=== PATIENT | female | born 1985 | race Caucasian/White ===

== ENCOUNTER 2019-05-06 11:04 | Inpatient (IN) ==
[2019-05-06 11:37] LABS: URINE SOURCE VOIDED
[2019-05-06 11:43] LABS: BILIRUBIN URINE NEGATIVE (NEGATIVE); BLOOD URINE 4+ (NEGATIVE); CLARITY SLIGHTLY CLOUDY (CLEAR); COLOR YELLOW; GLUCOSE URINE NEGATIVE (NEGATIVE); KETONE URINE TRACE mg/dL (NEGATIVE); PROTEIN URINE NEGATIVE (NEGATIVE); SP GRAVITY URINE 1.015
[2019-05-06 11:44] LABS: LEUKOCYTES URINE 1+ (NEGATIVE); NITRITE URINE NEGATIVE (NEGATIVE); UROBILINOGEN URINE 1 mg/dL
[2019-05-06 11:52] LABS: UR AMPHETAMINES QUAL NONE DETECTED (NONE DETECT); UR BARBITUATES QUAL NONE DETECTED (NONE DETECT); UR BENZODIAZEPIN QUAL NONE DETECTED (NONE DETECT); UR CANNABINOIDS QUAL NONE DETECTED (NONE DETECT); UR COCAINE QUAL NONE DETECTED (NONE DETECT); UR METHADONE QUAL NONE DETECTED (NONE DETECT); UR METHAMPHETAMINE QUAL NONE DETECTED (NONE DETECT); UR OPIATES QUAL NONE DETECTED (NONE DETECT); UR OXYCODONE QUAL NONE DETECTED (NONE DETECT); UR PCP QUAL NONE DETECTED (NONE DETECT); UR PROPOXYPHENE QUAL NONE DETECTED (NONE DETECT); UR TCA QUAL NONE DETECTED (NONE DETECT)
[2019-05-06] MEDS ORDERED: PEPCID PO ONE (13:56)
[2019-05-06] MEDS ORDERED: KEFZOL 1 GM/D5W 1 GM/50 ML IVPB IV PRN (13:56)
[2019-05-06] MEDS ORDERED: TYLENOL PO PRN (13:56)
[2019-05-06] MEDS ORDERED: LR 500 ML IV ONE (13:56)
[2019-05-06] MEDS ORDERED: PEPCID PO PRN (13:56)
[2019-05-06] MEDS ORDERED: PEPCID IV PRN (13:56)
[2019-05-06] MEDS ORDERED: ZOFRAN IV PRN (13:56)
[2019-05-06] MEDS ORDERED: REGLAN PO ONE (13:56)
[2019-05-06] MEDS ORDERED: PITOCIN 30 UNITS/NS 30 UNIT/500 ML IV.SOLN IV SCH (14:00)
[2019-05-06] MEDS ORDERED: SODIUM CHLORIDE 0.9% INJ SCH (14:00)
[2019-05-06 14:46] LABS: BASO# 0.02 X1000 (0.0-0.2); BASO% 0.2 % (0.0-0.8); EOS# 0.11 X1000 (0.0-0.7); HEMATOCRIT 34.9 % (37.0-47.0); HEMOGLOBIN 11.7 g/dL (12.0-16.0); IMM GRAN# 0.13 X1000 (0.0-0.04); IMM GRAN% 1.1 % (0.0-0.5); LYMPH# 1.97 X1000 (1.2-3.4); LYMPH% 17.2 % (20.5-51.1); MCHC 33.5 g/dL (33-37); MCV 92.6 FL (81-99); MONO# 0.86 X1000 (0.11-0.59); MONO% 7.5 % (1.7-9.3); MPV 10.6 FL (7.4-10.4); NEUT# 8.35 X1000 (1.4-6.5); PLT 234 X1000 (130-400); RBC 3.77 XMIL (4.2-5.4); RDW 14.1 % (11.5-14.5); WBC 11.44 X1000 (4.8-10.8)
[2019-05-06] MEDS: LR 1,000 ML IV SCH (15:37)
[2019-05-06] MEDS ORDERED: MINERAL OIL TOP PRN (15:40)
[2019-05-06] MEDS ORDERED: XYLOCAINE-MPF 1% INJ PRN (15:41)
--- NOTE | 2019-05-06 15:48 | HISTORY AND PHYSICAL ---
CHIEF COMPLAINT: Suspected Spontaneous rupture of membranes. HISTORY OF PRESENT ILLNESS: The patient is a 33-year-old G9, P5-1-2-6, at 40 weeks and 1 day who presents to Labor and Delivery with complaints of spontaneous rupture of membranes. The patient reports good movements, regular contractions, and vaginal spotting. MEDICATIONS: Include vitamins. PAST MEDICAL HISTORY: Depression, cervical dysplasia. PAST SURGICAL HISTORY: Cholecystectomy. OBSTETRICAL HISTORY: Five full-term vaginal deliveries, 1 vaginal delivery, 2 spontaneous abortions. [employer] HISTORY: Positive chlamydia exposure. Positive Trichomonas exposure. FAMILY HISTORY: Noncontributory. SOCIAL HISTORY: Positive tobacco use, half a pack per day. Denies alcohol or drug use. PHYSICAL EXAMINATION: VITAL SIGNS: Temperature 97.5 degrees, pulse rate 80, respirations 20, blood pressure 106/57, O2 saturation is 96% on room air. Weight 181 pounds, height 5 feet 4 inches, BMI 31.1 kg/m2. GENERAL: No acute distress. CARDIOVASCULAR: Regular rate and rhythm. RESPIRATORY: Clear to auscultation bilaterally. ABDOMEN: Gravid. Nontender to palpation. PELVIC: Sterile vaginal exam, 1 cm dilated, 50% effaced. Electronic monitoring category 1 tracing. [place]: irregular contractions. LABS: GBS negative. ROM plus positive. ASSESSMENT: Mrs. Drew is a 33-year-old, G9, P5-1-2-6, at 40 weeks and 1 day who presents to Labor and Delivery with suspected rupture of membranes/premature rupture of membranes. PLAN: 1. Admit to Labor and Delivery for augmentation of labor. 2. Obtain routine labor labs. 3. Augmentation with Cytotec. 4. Estimated weight 8 pounds. 5. Anticipate vaginal delivery. 6. Continuous monitoring with toco. [facility]
--- NOTE | 2019-05-06 16:10 | HISTORY AND PHYSICAL ---
ATTENDING PHYSICIAN: Dr. Tomy Victoria. ADMITTING PHYSICIAN: Dr. Sarah Blue. CHIEF COMPLAINT: Leaking fluid. HISTORY OF PRESENT ILLNESS: The patient is a 33-year-old G9, P5-1-2-6 at 40 weeks and 1 day who presents with complaint of leaking or fluid. She states a gush of fluid occurred at approximately 8:00 a.m. this morning. She describes it as a large amount and clear in color. She has noted continued small leaking since that time. She is feeling irregular, nonpainful contractions. She has also noted dark brown discharge but denies overt vaginal bleeding. She endorses movement. She did have intercourse last night. This has been complicated by late care, advanced maternal age, tobacco abuse, and depression. She was referred to Maternal Medicine for AMA and had one visit but did not return. She also tested positive for trichomonas approximately one month ago and was treated. OBSTETRICAL HISTORY: G1, spontaneous vaginal delivery at 40 weeks, male, 6 pounds (1998). G2, spontaneous at approximately 8 weeks, no D and C. G3, spontaneous at approximately 12 weeks, no D and C. G4, spontaneous vaginal delivery at 36 weeks, female, 5 pounds (2001). G5, spontaneous vaginal delivery at 40 weeks, female, 7 pounds (2002). G6, spontaneous vaginal delivery at 37 weeks, female, 7 pounds (2006) G7, spontaneous vaginal delivery at 40 weeks, male, 6 pounds (2015). G8, spontaneous vaginal delivery at 37 weeks, female, 6 pounds (2015) This was complicated by no care and illicit drug use. G9, current. Late care. GYNECOLOGICAL HISTORY: She had a Pap smear performed this that was negative. She does have a history of an abnormal Pap smear in 2012 with subsequent normal Pap smears. She also has a history of trichomonas infection approximately one month ago with treatment. She has a history of chlamydia that was treated in 2014. SOCIAL HISTORY: Tobacco abuse, smokes 1/2 ppd x 20 years, denies alcohol/drug use. She has a history of methamphetamine use, but has been to rehab. 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 She does not have custody of her other children. MEDICAL HISTORY: Depression and anxiety. SURGICAL HISTORY: Laparoscopic cholecystectomy. MEDICATIONS: None. ALLERGIES: No known drug allergies. FAMILY HISTORY: Father with coronary artery disease. Mother () cirrhosis of the liver and diabetes. VITAL SIGNS: Temperature 97.5, heart rate 80, respiratory rate 20, blood pressure 106/57, oxygen saturation 96% on room air. HEART TRACIN/moderate variability/positive acceleration/no decelerations. TOCO: Q four minutes. BEDSIDE ULTRASOUND: Fetus in vertex presentation, EULALIA 11 cm. LABORATORY DATA: Urinalysis with +1 white blood cells, +4 blood, negative nitrites, negative protein. CBC with white blood cell count 11.4, hemoglobin 11.7, hematocrit 34.9, platelets 234,000. ROM+: positive UDS negative LAB WORK: Blood type O positive. HIV negative. RPR nonreactive. Hepatitis B nonreactive. Hepatitis C nonreactive. Rubella immune. Gc/Ch negative, GBS negative. PHYSICAL EXAMINATION: GENERAL: Alert, no acute distress. HEENT: Normocephalic, atraumatic. LUNGS: Clear to auscultation bilaterally, no respiratory distress HEART: Regular rate and rhythm ABDOMEN: Soft, nontender. Gravid. PELVIC: Sterile speculum exam, :cervix approximately 1 cm dilated, positive thin clear discharge noted on speculum exam Sterile vaginal exam, cervix 1/50/-3. EXTREMITIES: No clubbing, cyanosis, or edema. Negative Moisés's sign. WET PREP: ferning negative ASSESSMENT AND PLAN: 33-year-old G9, P5-1-2-6 at 40 weeks and 1 day by last menstrual period equal to T2 ultrasound with spontaneous rupture of membranes, advanced maternal age, tobacco abuse, depression, and anxiety. 1. Maternal status reassuring, category 1 tracing. 2. ROM Plus test positive. Combined with equivocal speculum exam/wet prep will presume that patient is ruptured. 3. Admit to Labor and Delivery with labor augmentation with IV Pitocin 4. Continuous external monitoring and toco 5. Epidural when desired. 6. Anticipate vaginal delivery 7. GBS negative 8. Social Service consult [facility]
[2019-05-06] MEDS ORDERED: CYTOTEC VAG SCH (20:00)
[2019-05-06] MEDS ORDERED: CYTOTEC ONE (20:04)
[2019-05-06] MEDS ORDERED: STADOL IV PRN ×2 (23:00)
[2019-05-06] MEDS ORDERED: BRETHINE SUBQ PRN (23:00)
[2019-05-06] MEDS ORDERED: AMBIEN PO PRN (23:00)
[2019-05-06] MEDS: CYTOTEC VAG SCH (23:47)
[2019-05-07] MEDS: LR 1,000 ML IV SCH ×2 (00:23→06:14)
[2019-05-07] MEDS: CYTOTEC VAG SCH ×2 (00:45→00:46)
[2019-05-07] MEDS ORDERED: NAROPIN 0.2% INJ ONE (06:00)
[2019-05-07] MEDS ORDERED: FENTANYL-BUPIV-NS 2 MCG-0.1% 200 ML EPIDURAL SCH (06:00)
[2019-05-07] MEDS ORDERED: FENTANYL IV ONE (06:00)
[2019-05-07] MEDS ORDERED: FENTANYL ONE (06:21)
[2019-05-07] MEDS ORDERED: SODIUM CHLORIDE ONE (06:21)
[2019-05-07] MEDS ORDERED: BUPIVACAINE ONE (06:21)
[2019-05-07] MEDS ORDERED: NEO-SYNEPHRINE ONE (07:07)
[2019-05-07] MEDS ORDERED: SODIUM CHLORIDE 0.9% 0 ML ONE (07:07)
[2019-05-07] MEDS ORDERED: AMBIEN PO PRN (09:09)
[2019-05-07] MEDS ORDERED: PERI MEDS (DERMOPLAST/NUPERCAINAL/TUCKS) MISC PRN (09:09)
[2019-05-07] MEDS ORDERED: BENADRYL PO PRN (09:09)
[2019-05-07] MEDS ORDERED: PITOCIN IM PRN (09:09)
[2019-05-07] MEDS ORDERED: CYTOTEC PO PRN (09:09)
[2019-05-07] MEDS ORDERED: XYLOCAINE-MPF 1% INJ PRN (09:09)
[2019-05-07] MEDS ORDERED: BENADRYL IV PRN (09:09)
[2019-05-07] MEDS ORDERED: BOOSTRIX VACCINE IM ONE (09:09)
[2019-05-07] MEDS ORDERED: ATARAX PO PRN (09:09)
[2019-05-07] MEDS ORDERED: HYDROXYZINE IM PRN (09:09)
[2019-05-07] MEDS ORDERED: M-M-R II VACCINE SUBQ ONE (09:09)
[2019-05-07] MEDS ORDERED: MINERAL OIL PO PRN (09:09)
[2019-05-07] MEDS ORDERED: PITOCIN 20 UNITS/NS 20 UNITS/1,000 ML IV.SOLN INJ SCH (09:15)
[2019-05-07] MEDS: PITOCIN 30 UNITS/NS 30 UNIT/500 ML IV.SOLN IV SCH (10:32)
[2019-05-07] MEDS: MOTRIN PO PRN ×2 (10:36→20:37)
[2019-05-07] MEDS: PRECARE PO SCH (10:36)
[2019-05-07] MEDS: PERICOLACE PO SCH (20:37)
[2019-05-08 06:51] LABS: BASO# 0.02 X1000 (0.0-0.2); BASO% 0.2 % (0.0-0.8); EOS# 0.12 X1000 (0.0-0.7); EOS% 1.1 % (0.0-10.0); HEMATOCRIT 30.3 % (37.0-47.0); HEMOGLOBIN 9.6 g/dL (12.0-16.0); IMM GRAN# 0.12 X1000 (0.0-0.04); IMM GRAN% 1.1 % (0.0-0.5); LYMPH# 2.14 X1000 (1.2-3.4); LYMPH% 18.9 % (20.5-51.1); MCH 29.8 PG (27-31); MCHC 31.7 g/dL (33-37); MCV 94.1 FL (81-99); MONO# 0.79 X1000 (0.11-0.59); MPV 10.9 FL (7.4-10.4); NEUT# 8.14 X1000 (1.4-6.5); NEUT% 71.7 % (42.2-75.2); PLT 189 X1000 (130-400); RBC 3.22 XMIL (4.2-5.4); RDW 13.9 % (11.5-14.5); WBC 11.33 X1000 (4.8-10.8)
--- NOTE | 2019-05-08 06:59 | OB/GYN PROGRESS NOTE ---
Progress Note OB - . Patient Problems: Current Active Problems Problem Status Onset Rupture of membranes Acute Lost custody of children Acute OB Progress Note: Vital Signs - 24 hr 05/07/19 07:00 05/07/19 09:10 05/07/19 09:20 Temperature 96.8 F L 96.7 F L Pulse Rate 77 80 72 Respiratory Rate 20 16 16 Blood Pressure 112/69 Blood Pressure [Right Arm] 105/61 98/57 O2 Sat by Pulse Oximetry 98 98 96 05/07/19 09:30 05/07/19 09:40 05/07/19 09:50 Temperature Pulse Rate 75 72 72 Respiratory Rate 16 16 18 Blood Pressure Blood Pressure [Right Arm] 111/53 112/57 108/59 O2 Sat by Pulse Oximetry 100 100 100 05/07/19 10:00 05/07/19 10:10 05/07/19 10:11 Temperature Pulse Rate 69 76 72 Respiratory Rate 18 18 Blood Pressure 97/61 Blood Pressure [Right Arm] 103/65 97/61 O2 Sat by Pulse Oximetry 100 100 100 05/07/19 12:50 05/07/19 14:47 05/07/19 15:58 Temperature 97.7 F 97.6 F 97.7 F Pulse Rate 76 73 74 Respiratory Rate 16 18 18 Blood Pressure 107/55 111/61 106/66 Blood Pressure [Right Arm] O2 Sat by Pulse Oximetry 98 97 98 05/07/19 20:28 05/07/19 23:46 05/08/19 04:22 Temperature 97.5 F L 97.5 F L 97.5 F L Pulse Rate 86 76 71 Respiratory Rate 20 20 20 Blood Pressure 117/70 114/69 109/69 Blood Pressure [Right Arm] O2 Sat by Pulse Oximetry 99 100 99 Laboratory Results - last 24 hr 05/08/19 05:55 WBC 11.33 H RBC 3.22 L Hgb 9.6 L D Hct 30.3 L MCV 94.1 MCH 29.8 MCHC 31.7 L RDW Std Deviation 13.9 Plt Count 189 MPV 10.9 H Immature Gran % (Auto) 1.1 H Neut % (Auto) 71.7 Lymph % (Auto) 18.9 L [place] % (Auto) 7.0 Eos % (Auto) 1.1 Baso % (Auto) 0.2 Immature Gran # (Auto) 0.12 H Neut # (Auto) 8.14 H Lymph # (Auto) 2.14 [place] # (Auto) 0.79 H Eos # (Auto) 0.12 Baso # (Auto) 0.02 PP1 vssaf no cx bottle feeding s/nt -cce hgb 9.6 fm 10+ ambulating, voiding ameena reg diet home in am
--- NOTE | 2019-05-08 08:32 | OPERATIVE NOTE ---
PROCEDURE DATE: 05/07/2019 PROCEDURE: Spontaneous vaginal delivery. DESCRIPTION OF PROCEDURE: At 8:53 in the morning, the patient delivered vaginally under epidural anesthesia. The was suctioned with bulb on the perineum. There was 1 nuchal cord noted and reduced. The infant was placed on the patient's abdomen after delivery. The cord was clamped and cut. Placenta was delivered intact with normal 3 vessel cord. The fundus was firm with massage and IV Pitocin. There were no new cervical, vaginal or perineal lacerations. Male infant weighing 7 pounds 2 ounces. Apgars of 9 and 10 at 1 and 5 minutes respectively. EBL was 150 mL. Both mom and infant are recovering well.
[2019-05-08] MEDS: PRECARE PO SCH (08:47)
[2019-05-08] MEDS: MOTRIN PO PRN (08:47)
[2019-05-08] MEDS: PERICOLACE PO SCH (20:52)
--- NOTE | 2019-05-09 07:33 | OB/GYN PROGRESS NOTE ---
Progress Note OB - . Patient Problems: Current Active Problems Problem Status Onset Vaginal delivery Acute Lost custody of children Acute OB Progress Note: Vital Signs - 24 hr 05/08/19 07:57 05/08/19 12:38 05/08/19 20:48 Temperature 98.1 F 97.8 F 97.7 F Pulse Rate 68 68 88 Respiratory Rate 16 18 20 Blood Pressure 108/57 114/66 118/75 O2 Sat by Pulse Oximetry 97 98 99 05/09/19 00:28 Temperature 97.5 F L Pulse Rate 76 Respiratory Rate 20 Blood Pressure 117/82 O2 Sat by Pulse Oximetry 98 HPI: pt seen and examined. Currently w/o complaints. Ambulating nad urinating w/o difficulty. Tolerating regular diet. Denies fever/chills/n/v. Reports decreased lochia and positive breast feeding VS: please see above GEN: NAD CV: RRR, +S1S2 RESP: CTA b/l ABD: soft NTTP, FF below umbilicus EXT: neg CT LABS: please see above ASSESSMENT: 33yo PPD#2 s/p PLAN: -con't routine PP care -reviewed risks of PP depression -plan for LSC BTL, f/u in office in 2 weeks -plan for d/c home today
[2019-05-09] MEDS ORDERED: PNEUMOVAX 23 IM ONE (07:45)
[2019-05-09] MEDS: PRECARE PO SCH (08:36)
[2019-05-09 08:54] VITALS: BP 106/63
== END 2019-05-09 12:00 | disposition home or self-care (01) | DRG 807 ==
LOC: P.NBC 11:04 → P.LD 11:06
PROVIDERS: ADMIT Obstetrics & Gynecology; ATTEND Student in an Organized Health Care Education/Training Program